=== PATIENT | female | born 2000 | race African-American/Black ===

== ENCOUNTER 2019-03-01 11:27 | Emergency (ER) | payer MEDICAID ==
[~2019-03-01] VITALS: Ht 167.6 cm; Wt 113.0 kg
[2019-03-01] MEDS ORDERED: ACETAMINOPHEN 500MG TABLET PO ONE (15:15)
[2019-03-01 15:31] VITALS: BP 142/62
[2019-03-01 15:40] LABS: BASOPHILS % 0.6 % (0.0-2.0); EOSINOPHILS % 3.2 % (0.0-5.0); HEMATOCRIT. 34.2 % (36.0-48.0); HEMOGLOBIN. 11.9 g/dL (12.0-16.0); LYMPHOCYTES % 27.1 % (20.0-50.0); MEAN CORPUSCULAR HEMOGLOBIN 30.1 pg (28.0-32.0); MEAN CORPUSCULAR VOLUME 86.6 fL (81.0-99.0); MEAN PLATELET VOLUME 7.7 fl (7.4-10.4); MONOCYTES % 10.2 % (2.0-8.0); NEUTROPHILS % 58.9 % (40.0-76.0); PLATELET 276 x1000/uL (130-400); RED BLOOD CELL COUNT 3.94 mill/uL (4.2-5.4); RED CELL DISTRIBUTION WIDTH 15.6 % (11.6-14.6)
[2019-03-01 15:42] LABS: CHLORIDE 107 mEq/L (98-107)
[2019-03-01 16:06] LABS: B-HCG QUANTITATIVE 13798 mIU/mL (<3)
== END 2019-03-01 16:37 | disposition home or self-care (01) ==
LOC: ER 11:27
DX: O26.892 Other specified pregnancy related conditions, second trimester (principal); R10.30 Lower abdominal pain, unspecified; Z3A.16 16 weeks gestation of pregnancy; Z88.8 Allergy status to other drugs, medicaments and biological substances
CPT/HCPCS: 36415; 76805; 80053; 84702; 85025; 86850; 86900; 86901; 99284; Z7610